=== PATIENT | female | born 1975 ===

== ENCOUNTER 2018-06-08 11:11 | Day surgery (SDC) | payer OTHER ==
[2018-06-08] MEDS ORDERED: Lactated Ringer's 500 ML IV ONE (12:54)
[2018-06-08 12:57] VITALS: BMI 23.6
[2018-06-08] MEDS ORDERED: Propofol 10 mg/ml Inj (20 ML) ONE (12:59)
[2018-06-08 14:27] VITALS: TEMP 98
[2018-06-08 14:46] VITALS: BP 101/58; PULSE 62; RESP 18; O2SAT 100
== END 2018-06-08 14:47 | disposition home or self-care (01) ==
LOC: H.ENDO 11:11
PROVIDERS: ATTEND Internal Medicine Gastroenterology
DX: K64.0 First degree hemorrhoids (principal); K59.00 Constipation, unspecified
CPT/HCPCS: 45378; J2001; J2704; J7120